=== PATIENT | female | born 1960 | race Caucasian/White ===

== ENCOUNTER 2021-06-26 10:05 | Outpatient (REF) | payer BC, SELFPAY | END 2021-06-26 10:06 | disposition home or self-care (01) | LOC: HO.LAB 10:05 | PROVIDERS: PCP Internal Medicine; Visit Provider Internal Medicine | DX: Z20.822 Contact with and (suspected) exposure to COVID-19 (principal) | CPT/HCPCS: C9803; U0003; U0005 ==

== ENCOUNTER 2021-07-02 13:53 | Outpatient (REF) | payer BC, SELFPAY | END 2021-07-02 13:54 | disposition home or self-care (01) | LOC: HO.LAB 13:53 | PROVIDERS: PCP Internal Medicine; Visit Provider Internal Medicine | DX: Z20.822 Contact with and (suspected) exposure to COVID-19 (principal) | CPT/HCPCS: C9803; U0003; U0005 ==

== ENCOUNTER 2021-07-09 14:46 | Outpatient (REF) | payer BC, SELFPAY | END 2021-07-09 14:47 | disposition home or self-care (01) | LOC: HO.LAB 14:46 | PROVIDERS: PCP Internal Medicine; Visit Provider Internal Medicine | DX: Z20.822 Contact with and (suspected) exposure to COVID-19 (principal) | CPT/HCPCS: C9803; U0003; U0005 ==

== ENCOUNTER 2021-07-16 14:30 | Outpatient (REF) | payer BC, SELFPAY | END 2021-07-16 14:31 | disposition home or self-care (01) | LOC: HO.LAB 14:30 | PROVIDERS: Visit Provider Internal Medicine | DX: Z20.822 Contact with and (suspected) exposure to COVID-19 (principal) | CPT/HCPCS: C9803; U0003; U0005 ==

== ENCOUNTER 2021-07-23 14:03 | Outpatient (REF) | payer BC, SELFPAY | END 2021-07-23 14:04 | disposition home or self-care (01) | LOC: HO.LAB 14:03 | PROVIDERS: Visit Provider Internal Medicine | DX: Z20.822 Contact with and (suspected) exposure to COVID-19 (principal) | CPT/HCPCS: C9803; U0003; U0005 ==

== ENCOUNTER 2021-07-30 06:38 | Outpatient (REF) | payer BC, SELFPAY | END 2021-07-30 06:39 | disposition home or self-care (01) | LOC: HO.LAB 06:38 | PROVIDERS: PCP Internal Medicine; Visit Provider Internal Medicine | DX: Z20.822 Contact with and (suspected) exposure to COVID-19 (principal) | CPT/HCPCS: C9803; U0003; U0005 ==

== ENCOUNTER 2021-08-06 15:59 | Outpatient (REF) | payer BC, SELFPAY | END 2021-08-06 16:00 | disposition home or self-care (01) | LOC: HO.LAB 15:59 | PROVIDERS: Visit Provider Internal Medicine | DX: Z20.822 Contact with and (suspected) exposure to COVID-19 (principal) | CPT/HCPCS: C9803; U0003; U0005 ==

== ENCOUNTER 2021-08-13 11:55 | Outpatient (REF) | payer BC, SELFPAY | END 2021-08-13 11:56 | disposition home or self-care (01) | LOC: HO.LAB 11:55 | PROVIDERS: Visit Provider Internal Medicine | DX: Z20.822 Contact with and (suspected) exposure to COVID-19 (principal) | CPT/HCPCS: C9803; U0003; U0005 ==

== ENCOUNTER 2021-08-20 14:12 | Outpatient (REF) | payer BC, SELFPAY | END 2021-08-20 14:13 | disposition home or self-care (01) | LOC: HO.LAB 14:12 | PROVIDERS: Visit Provider Internal Medicine | DX: Z20.822 Contact with and (suspected) exposure to COVID-19 (principal) | CPT/HCPCS: C9803; U0003; U0005 ==

== ENCOUNTER 2021-08-28 11:21 | Outpatient (REF) | payer BC, SELFPAY | END 2021-08-28 11:22 | disposition home or self-care (01) | LOC: HO.LAB 11:21 | PROVIDERS: Visit Provider Internal Medicine | DX: Z20.822 Contact with and (suspected) exposure to COVID-19 (principal) | CPT/HCPCS: C9803; U0003; U0005 ==

== ENCOUNTER 2021-09-03 13:39 | Outpatient (REF) | payer BC, SELFPAY | END 2021-09-03 13:40 | disposition home or self-care (01) | LOC: HO.LAB 13:39 | PROVIDERS: Visit Provider Internal Medicine | DX: Z20.822 Contact with and (suspected) exposure to COVID-19 (principal) | CPT/HCPCS: C9803; U0003; U0005 ==

== ENCOUNTER 2021-09-10 14:28 | Outpatient (REF) | payer BC, SELFPAY | END 2021-09-10 14:29 | disposition home or self-care (01) | LOC: HO.LAB 14:28 | PROVIDERS: Visit Provider Internal Medicine | DX: Z20.822 Contact with and (suspected) exposure to COVID-19 (principal) | CPT/HCPCS: C9803; U0003; U0005 ==

== ENCOUNTER 2021-09-17 14:44 | Outpatient (REF) | payer BC, SELFPAY | END 2021-09-17 14:45 | disposition home or self-care (01) | LOC: HO.LAB 14:44 | PROVIDERS: Visit Provider Internal Medicine | DX: Z20.822 Contact with and (suspected) exposure to COVID-19 (principal) | CPT/HCPCS: C9803; U0003; U0005 ==